=== PATIENT | male | born 1960 | race Caucasian/White ===

== ENCOUNTER → 2016-07-14 | Outpatient (CLI) | payer BC ==
[~2016-07-14] MED LIST: COLACE 100100 MG/CAP PO; GLUCOPHAGE500 MG/TAB PO; LIPITOR20 MG PO; NORCO 325 MG-51 TAB PO
== END ==
LOC: COL.RAD 16:10
DX: M25.511 Pain in right shoulder (principal)

== ENCOUNTER 2016-12-27 15:00 | Outpatient (RCR) | payer BC | END 2017-02-02 13:41 | LOC: WSOT 15:00 | DX: M65.842 Other synovitis and tenosynovitis, left hand (principal) ==

== ENCOUNTER → 2017-02-08 | Outpatient (CLI) | payer BC | LOC: COL.PUL 11:13 | DX: J45.909 Unspecified asthma, uncomplicated (principal) ==

== ENCOUNTER → 2017-02-24 | Outpatient (CLI) | payer BC | LOC: COL.PUL 09:33 | DX: J45.909 Unspecified asthma, uncomplicated (principal) | CPT/HCPCS: J7674 ==

== ENCOUNTER 2018-07-10 09:15 | Outpatient (RCR) | payer BC | END 2018-09-30 | LOC: WSST | DX: R49.9 Unspecified voice and resonance disorder (principal) ==

== ENCOUNTER 2019-02-15 17:54 | Emergency (ER) | payer BC ==
[~2019-02-15] VITALS: Ht 182.9 cm; Wt 153.6 kg
[2019-02-15 17:58] VITALS: BP 142/77; TEMP 98.5
[2019-02-15 19:00] VITALS: PULSE 70
== END 2019-02-15 19:00 | disposition home or self-care (01) ==
LOC: COL.ER 17:54
DX: T59.0X1A Toxic effect of nitrogen oxides, accidental (unintentional), initial encounter (principal); E78.5 Hyperlipidemia, unspecified; E11.9 Type 2 diabetes mellitus without complications; I10 Essential (primary) hypertension; Z79.84 Long term (current) use of oral hypoglycemic drugs

== ENCOUNTER 2021-04-30 09:06 | Inpatient (IN) | payer BC ==
[~2021-04-30] VITALS: Ht 182.9 cm; Wt 152.5 kg
[2021-06-08] VITALS (10 sets, daily range): BP systolic 98–138; BP diastolic 56–79; PULSE 61–75; TEMP 97.2–98.3
[2021-06-08] MEDS ORDERED: SINGULAIR 110 MG/TAB PO (07:26)
[2021-06-08] MEDS ORDERED: SPIRIVA RESPIMAT4 GM IH (07:27)
[2021-06-08] MEDS ORDERED: PROAIR HFA0.09 MG/AC IH (07:27)
[2021-06-08] MEDS ORDERED: 00186-0370-20 IH (07:28)
[2021-06-08] MEDS ORDERED: BUSPAR10 MG PO (07:28)
[2021-06-08] MEDS ORDERED: PRISTIQ 50 MG T50 MG PO (07:28)
[2021-06-08] MEDS ORDERED: COZAAR 50MG50 MG/TAB PO (07:28)
--- NOTE | 2021-06-08 08:00 | NUR ---
The patient ambulated back to [place] [facility] independently using a steady gait and appeared to tolerate the activity well. Vital signs obtained. Consent signed. 18G IV started in left hand with one stick, NS Infusing without difficulty. Assessment completed. LISBET hose applied to right lower extremity. Scrub completed to left knee. Call light is within reach. Warm blankets provided. brought back to be at his bedside. Will continue to monitor the patient.
--- NOTE | 2021-06-08 09:15 | NUR ---
The patient has been taken over to the recovery room by jett. The patient's belongings were transferred over to the recovery room and will be taken up to the 3rd floor post operatively with the patient. The patient's is going to go home during the procedure but her cellphone number was obtained so she can receive updates throughout the surgery.
--- NOTE | 2021-06-08 13:46 | NUR ---
Pt recently arrived to the floor from [place]. He is alert and oriented with no pain complaints. Educated that once he starts getting some feeling in his left leg, to make sure to notify nursing. Oriented to the room and educated on how to order room service. Pt has just ordered some lunch. Dressing/cm to left leg is CDI, ice pack in place. Pts present in the room, no other needs verbalized, call light within reach
--- NOTE | 2021-06-08 16:13 | NUR ---
Pt reported that his pain is still 6/10. States the pain pill helped so that the pain did not get any worse, but is still almost unbearable. Pt tolerating PO, fluids INT'd at this time. No other needs verbalized, call light within reach
--- NOTE | 2021-06-08 19:45 | NUR ---
Pt. sitting up in bed. Pt. is A&OX3, assessment complete. IV to lt. hand patent. Pt. reports pain to lt. knee at a 5 on pain scale, gave meds per orders. Dressing to lt. knee CDI. Pt. denies further needs, call light within reach.
[2021-06-09] VITALS (7 sets, daily range): BP systolic 110–134; BP diastolic 64–80; PULSE 68–89; TEMP 97.4–98.4
[2021-06-09 07:04] LABS: HEMOGLOBIN 11.9 g/dl (13.5-18.0)
[2021-06-09 07:09] LABS: HEMATOCRIT 35.6 % (42.0-52.0)
--- NOTE | 2021-06-09 07:36 | NUR ---
Pt doing okay this morning. States having some pain, does not feel the Roxicodone helps. Discussed this with PA, pain medications changed. Dressing to left knee removed and aquacell applied. Incision well approximated, no redness or drainage noted. Luis Alberto hose applied and new ice bag made. Pt has ordered breakfast, awaiting it at this time. No other needs, will continue to monitor
--- NOTE | 2021-06-09 09:39 | NUR ---
Pt still having pain complaints. Did not feel the [place] helped. Gave 2 doses. Just gave another PRN dose of Ultram. Pts present in the room. OT working with pt at this time
--- NOTE | 2021-06-09 10:01 | NUR ---
Dental Receptionist met with patient to discuss discharge planning. Patient lives in [place] with his , Binta (ph#[phone]) and sees Dr. Burnett for primary care. Patient obtains medications from [facility] with no difficulties. Patient uses a CPAP and also has a front wheeled walker for his recovery. Patient is normally independent with ADLS and plans to return home upon discharge. Patient does not have Advance Directives and is not interested in establishing DPOA-HC at this time. Discharge Plan: Home
--- NOTE | 2021-06-09 12:53 | NUR ---
Pt doing better now as far as pain management. He stated that he is thinking he would be okay going home, but wants to wait until after afternoon therapy. PRN pain medication given at this time, pt rating pain 3-4/10.
--- NOTE | 2021-06-09 15:30 | NUR ---
Pt doing okay, states he is not sure about going home due to pain management and feels unsure about getting around. Wants to work with therapy some more before going home. PA notified
--- NOTE | 2021-06-09 18:27 | NUR ---
Pt resting in bed, pain tolerable at this time. Pt has been present most of the day. Pt is getting up standby assist although he is hesitant/nervous moving. Fresh ice pack applied to left knee. No needs, call light within reach
--- NOTE | 2021-06-09 19:45 | NUR ---
Pt. sitting up in bed. Pt. sitting up in bed. Pt. is A&OX3, assessment complete. INT to lt. hand patent. Aquacell dressing to lt. knee CDI. Pt. reports pain at a 5 on pain scale, gave pain meds per orders. Pt. denies further needs, call light within reach.
--- NOTE | 2021-06-09 20:17 | NUR ---
PT TOOK OWN INHALERS
[2021-06-10 03:33] VITALS: BP 127/79; PULSE 77; TEMP 97.4
[2021-06-10 07:53] VITALS: BP 121/70; PULSE 80; TEMP 98.8
[2021-06-10] MEDS ORDERED: ASPI325T6 PO (09:18)
[2021-06-10] MEDS ORDERED: NORCO 325 MG-7.1 TAB PO (09:19)
[2021-06-10] MEDS ORDERED: ULTRAM 50MG TAB50 MG PO (09:20)
[2021-06-10] MEDS ORDERED: SENOKOT S 50 MG1 TAB PO (09:20)
--- NOTE | 2021-06-10 10:30 | NUR ---
Patient alert and oriented, answers questions appropriately. See assessment. Left knee incision with Aquacel CDI, no redness noted. Pulses palpable to LLE, sensation intact, no c/o numbness or tingling. LISBET hose and SCDs in place. Ice to left knee. ROM exercises reviewed. FWB. Uses gait belt and FWW. No c/o at this time.
--- NOTE | 2021-06-10 16:31 | NUR ---
Discharge instructions reviewed with patient and spouse, verbalized understanding. Discharged via wheelchair to auto/home with spouse at 1500.
== END 2021-06-10 15:00 | disposition home or self-care (01) | DRG 470 ==
LOC: INPTSU 06-08 06:54 → SURG 06-08 06:54
PROVIDERS: ADMIT Orthopaedic Surgery
PROC: 0SRD0J9 Replacement of Left Knee Joint with Synthetic Substitute, Cemented, Open Approach (ICD-10-PCS; principal; 2021-06-08 10:15)
PROC: 5A09357 Assistance with Respiratory Ventilation, Less than 24 Consecutive Hours, Continuous Positive Airway Pressure (ICD-10-PCS; 2021-06-09)
DX: M17.12 Unilateral primary osteoarthritis, left knee (principal); I10 Essential (primary) hypertension; E78.5 Hyperlipidemia, unspecified; J44.9 Chronic obstructive pulmonary disease, unspecified; G47.33 Obstructive sleep apnea (adult) (pediatric); K21.9 Gastro-esophageal reflux disease without esophagitis; F32.A Depression, unspecified; F41.9 Anxiety disorder, unspecified; E11.9 Type 2 diabetes mellitus without complications; M10.9 Gout, unspecified
CPT/HCPCS: A9284; C1713; C1776; J0690; J2250; J2405; J2704; J3010; J7030